=== PATIENT | female | born 1995 | race Two or more races ===

== ENCOUNTER 2024-12-15 05:55 | Day surgery (SDC) | payer MEDICAID, SELFPAY ==
--- NOTE | 2024-12-12 13:02 | ESHP_ITS ---
RE: ROGELIO MARTIN : 1995 DATE OF ADMISSION: 12/15/2024 HISTORY OF PRESENT ILLNESS: This is a 29-year-old 4, para 1-0-2-1 with intrauterine at 13 weeks and 5 days who presents to [facility] for placement of transvaginal cervical cerclage. The patient has a history of incompetent cervix with two prior second trimester losses and her last went to full term with a cervical cerclage. ALLERGIES: NO KNOWN DRUG ALLERGIES. MEDICATIONS: multivitamin 1 p.o. daily. PAST MEDICAL HISTORY: depression, preeclampsia in a prior , incompetent cervix, mild systolic hypertension. SOCIAL HISTORY: She denies any alcohol, drug use or smoking. OB HISTORY: In 2019, 19-week spontaneous AB, incompetent cervix with D and C. In 2020, 20-week spontaneous AB, incompetent cervix with D and C. In 07/2021, 39-week delivery 7 pound 11 ounce male breech presentation, had transvaginal cerclage, preeclampsia. PAST SURGICAL HISTORY: delivery in 07/2021, dilatation and curettage in 2019 and 2020. FAMILY HISTORY: Denies. REVIEW OF SYSTEMS: She denies any chest pain, palpitations, cough, fever, shortness of breath, flank pain, lower extremity pain, bleeding, leaking, vaginal discharge. PHYSICAL EXAMINATION: VITAL SIGNS: Blood pressure is 138/72, heart rate 88, respirations 18, temperature is 98.6. HEENT: Oropharynx and sclerae clear. LUNGS: Clear to auscultation bilaterally. HEART: Regular rate and rhythm. ABDOMEN: Nontender. Old Pfannenstiel scar noted. EXTREMITIES: Nontender. SKIN: No gross rashes or lesions. NEUROLOGIC: No focal deficit. ASSESSMENT AND PLAN: Intrauterine at 13 weeks, incompetent cervix. PLAN: Placement of transvaginal cervical cerclage. Informed consent was obtained. The patient was made aware of the risks, complication, alternative benefits of the proposed procedure. She is aware of the risk of wound infection resulting in miscarriage, rupture of membranes, resulting in miscarriage bleeding, resulting in miscarriage or blood transfusion, possibility that the cerclage fails to hold the cervix from dilating, blood clots in the legs and lungs and anesthesia complications. DT: 11:27:52 TT: 13:00:00 Ref: [id number] - TID: [id number] MTDD
[2024-12-14 08:34] VITALS: BMI 30.8
[2024-12-14 09:22] LABS: Basophils # (Auto) 0.0 Thou/mm3 (0.0-0.2); Basophils % (Auto) 0 % (0-2.5); Eosinophils # (Auto) 0.0 Thou/mm3 (0.0-0.5); Eosinophils % (Auto) 1 % (0-10); Hematocrit 36.0 % (36.0-46.0); Hemoglobin 12.3 g/dL (12.0-16.0); Immature Granulocytes Auto 0.04 Thou/mm3 (0.00-0.00); Lymphocytes # (Auto) 2.3 Thou/mm3 (1.0-4.8); Lymphocytes % (Auto) 30 % (10-50); Mean Corpuscular HGB Conc 34.2 g/dl (31.0-37.0); Mean Corpuscular Hemoglobin 31.3 pg (25.0-35.0); Mean Corpuscular Volume 92 fL (80-100); Monocytes # (Auto) 0.4 Thou/mm3 (0.0-0.8); Monocytes % (Auto) 6 % (0-12); Neutrophils # (Auto) 5.0 Thou/mm3 (1.8-7.7); Neutrophils % (Auto) 64 % (37-80); Nucleated Red Blood Cell # 0.00 Thou/mm3 (0.00-0.00); Nucleated Red Blood Cell % 0 /100 WBC (0); Platelet Count 212 Thou/mm3 (140-440); RDW Standard Deviation 41.1 fL (36.4-46.3); Red Blood Count 3.93 Miln/mm3 (4.00-5.20); White Blood Count 7.8 Thou/mm3 (3.6-11.0)
[2024-12-14 09:30] LABS: INR 1.0 (0.9-1.3); Partial Thromboplastin Time 26.8 Seconds (22.0-36.0); Prothrombin Time 10.5 Seconds (9.0-12.2)
[2024-12-14 09:33] LABS: Alanine Aminotransferase < 7 U/L (10-49); Albumin, Serum 4.6 gm/dL (3.5-5.0); Albumin/Globulin Ratio 1.8 (1.2-2.2); Alkaline Phosphatase 47 U/L (46-116); Anion Gap 10 (7-16); Aspartate Amino Transferase 13 U/L (0-34); BUN/Creatinine Ratio 13 Ratio (12-20); Bilirubin,Total 0.5 mg/dL (0.3-1.2); Blood Urea Nitrogen < 5 mg/dL (9-23); Calcium 9.2 mg/dL (8.3-10.6); Calcium (Corrected) 9.2 mg/dL (8.5-10.1); Carbon Dioxide 23.9 mMol/L (20.0-31.0); Chloride 104 mMol/L (98-107); Creatinine (Component) 0.4 mg/dL (0.6-1.3); Estimated Creatinine Clearance 194.5 mL/min (>60); Globulin 2.5 gm/dL (2.3-3.5); Glucose 90 mg/dL (74-106); Osmolality,Calculated 272 (275-295); Potassium 4.2 mMol/L (3.4-5.1); Sodium 138 mMol/L (136-145); Total Protein 7.1 gm/dL (5.7-8.2); eGFR > 60 See Note
[2024-12-15] VITALS (7 sets, daily range): BP systolic 112–130; BP diastolic 77–90; PULSE 101–124; RESP 12–18; TEMP 36.2–36.6; O2SAT 99–100; BMI 30.8
--- NOTE | 2024-12-15 07:40 | CHAP ---
Visited with patient giving encouragement, comfort and prayer prior to the procedure.
--- NOTE | 2024-12-15 08:44 | SUR.PHASEI ---
Addendum entered by Jina Waldron RN 12/15/24 09:19: 0844: Pt. AAOx4, vitals stable, breathing unlabored, no complaint of pain or nausea, peripad in place CDI, no active bleed noted, called MD Zepeda and he stated that a heart tones was not needed. Report recieved from John BUTTERFIELD and Gatito RUSSELL. Original Note: 0844: Pt. AAOx4, vitals stable, breathing unlabored, no complaint of pain or nausea, peripad in place CDI, no active bleed noted, called MD Zepeda and he stated that a heart rate was not needed. Report recieved from John BUTTERFIELD and Gatito RUSSELL.
--- NOTE | 2024-12-15 08:46 | PD.GYNPROC ---
Operative Note - SADDLE AND SIDE WIRE STITCHER Procedure Date of procedure: 12/15/24 Procedure Performed: Transvaginal Cervical Cerclage Placement with Mersilene Indication: IUP 13w6d Incompetent Cervix. Pre-Op diagnosis: IUP 13w6d Incompetent Cervix. Post-Op diagnosis: IUP 13w6d Incompetent Cervix. Anesthesia type: General Procedure description: After proper informed consent was obtained.? The patient was made aware of the risk complications alternatives and benefits of the proposed procedure.? She was taken to the operating room.? She underwent placement of spinal anesthesia.? She was placed in dorsolithotomy position.? A red rubber catheter was used to drain the bladder.? She was prepped and draped in usual sterile fashion.? A timeout was performed.? A weighted speculum was placed in the posterior fornix of the vagina.? Lateral vaginal retractors were placed at 12 and 9:00 with ring forceps on the cervix in the same position.? Using the Mersilene 3 mm suture on a Oneal catgut half-koi taper point (1824-3D) needle the suture was placed beginning at 12:00 and exiting at 10:00. The lateral vaginal retractors were repositioned at 9:00 and 6:00 with ring forceps on the cervix in the same position. The needle and suture was placed at 8:00 and exiting at 6:00. The lateral vaginal retractors were repositioned at 6:00 and 3:00 with ring forceps on the cervix in the same position.? The suture and needle were placed at at 5:00 and exiting at 4:00.? The lateral vaginal retractors were placed at 3:00 and 12:00 with ring forceps on the cervix in the same position.? The suture entered at 2:00 and exiting at 12:00 to 1:00.? The suture was tied at the 12 o'clock position. She tolerated the procedure well. Counts were correct. She was transfered to the recovery room in stable condition.? I discussed with the Ben the intraoperative findings, expectation for recovery, post operative discharge instructions reviewed pre-op and again post-op.? All questions answered.? Specimen: none Estimated blood loss (ml): 5 Findings: Normal appearing cervix Complications: none Surgical staff Operation Date: 12/15/24 08:15 <No data on this case meets the specified criteria> Diagnosis Problem List Completed Was Problem List Reviewed/Reconciled?: Yes
--- NOTE | 2024-12-15 09:39 | SUR.PHASEII ---
0939: Pt. AAOx4, vitals stable, breathing unlabored, no complaint of pain or nausea, peripad in place CDI, no active bleed noted, pt. tolerated sips of water well, pt. ambulated to wheelchair with steady gait and no assist, no complications. Gave discharge instructions to the pt. and her ride, both verbalized understanding and had no further questions. Pt. left with all personal belongings.
== END 2024-12-15 09:39 | disposition home or self-care (01) ==
PROVIDERS: PCP Family Medicine; Referring Provider Specialist; Visit Provider Specialist
PROC: 0UVC7ZZ Restriction of Cervix, Via Natural or Artificial Opening (ICD-10-PCS; CPT 57700; principal; 2024-12-15 08:00)
DX: O34.31 Maternal care for cervical incompetence, first trimester (principal); Z3A.13 13 weeks gestation of pregnancy
CPT/HCPCS: 59320; 36415; 80053; 85025; 85610; 85730; 86850; 86900; 86901; A4649; J0690; J2704; J3010; J3490; J1596